=== PATIENT | female | born 1970 | race Asian ===

== ENCOUNTER 2023-01-10 16:55 | Emergency (ER) | payer OTHER ==
[2023-01-10 17:02] VITALS: BP 130/78; PULSE 88; RESP 19; TEMP 97.3; BMI 22.8
== END 2023-01-10 17:52 | disposition left against medical advice (07) ==
LOC: JER 16:55
DX: R07.9 Chest pain, unspecified (principal); Z98.818 Other dental procedure status
CPT/HCPCS: 99281-25

== ENCOUNTER 2023-04-11 17:47 | Emergency (ER) | payer OTHER ==
[2023-04-11 17:53] VITALS: RESP 20; BMI 22.8
[2023-04-11] MEDS ORDERED: ACETAMINOPHEN 500 MG TABLET (FP) PO ONE (18:36)
[2023-04-11] MEDS ORDERED: ACETAMINOPHEN 500 MG TABLET (FP) ONE (18:44)
[2023-04-11] MEDS ORDERED: SODIUM CHLORIDE 0.9% 500 ML INFUS.BAG IV ONE ×2 (18:56→20:02)
[2023-04-11 19:20] LABS: BASO % 0.8 % (0-2.0); EOS % 0.4 % (0-4.5); HEMOGLOBIN 13.8 GM/dL (10.7-15.3); LYMPH % 5.5 % (8-40); MCH 30.1 pg (25.7-33.7); MCHC 32.8 g/dl (32.0-36.0); MEAN CELL VOLUME 91.9 fl (80-96); MEAN PLT VOLUME 7.5 fl (7.5-11.1); MONO % 5.8 % (3.8-10.2); NEUT % 87.5 % (42.8-82.8); PLATELET COUNT 283 10^3/uL (134-434); RBC 4.57 M/mm3 (3.60-5.2); RDW 13.8 % (11.6-15.6); WHITE BLOOD COUNT 9.1 K/mm3 (4.0-10.0)
[2023-04-11 19:37] LABS: POTASSIUM 3.8 mmol/L (3.5-5.1)
[2023-04-11 19:40] LABS: BLOOD UREA NITROGEN 8.7 mg/dL (7-18); CALCIUM 9.4 mg/dL (8.5-10.1); MAGNESIUM 2.1 mg/dL (1.8-2.4)
[2023-04-11 19:41] LABS: ALBUMIN 4.3 g/dl (3.4-5.0)
[2023-04-11 19:43] LABS: CREATININE 0.5 mg/dL (0.55-1.3)
[2023-04-11 19:44] LABS: THROAT:GRP A STREP NOT DETECTED (NOTDETECTED)
[2023-04-11 19:45] LABS: BILIRUBIN,TOTAL 0.6 mg/dL (0.2-1); TOT PROT 7.5 g/dl (6.4-8.2)
[2023-04-11] MEDS ORDERED: KETOROLAC TROMETHAMINE 30 MG/1 ML VIAL IVPUSH ONE (20:02)
[2023-04-11] MEDS ORDERED: KETOROLAC TROMETHAMINE 30 MG/1 ML VIAL ONE (20:04)
[2023-04-11 20:06] VITALS: BP 145/81; PULSE 124; TEMP 101
== END 2023-04-11 21:11 | disposition home or self-care (01) ==
LOC: JERFT 17:47
PROC: 3E0333Z Introduction of Anti-inflammatory into Peripheral Vein, Percutaneous Approach (ICD-10-PCS; principal; 2023-04-11)
DX: R50.9 Fever, unspecified (principal); R07.0 Pain in throat; U07.1 COVID-19
CPT/HCPCS: 0241U-QW; 36415; 80053; 82550; 83735; 84484; 85025; 87651; 93005; 93010; 99284-25

== ENCOUNTER 2023-04-15 21:26 | Emergency (ER) | payer OTHER ==
[2023-04-15 21:50] VITALS: BP 129/75; PULSE 78; RESP 18; TEMP 98; BMI 23.6
== END 2023-04-15 22:28 | disposition home or self-care (01) ==
LOC: JER 21:26 → JERFT 21:26
DX: U07.1 COVID-19 (principal); J00 Acute nasopharyngitis [common cold]
CPT/HCPCS: 99283-25

== ENCOUNTER 2023-07-18 11:42 | Day surgery (SDC) | payer OTHER ==
[2023-07-17 17:25] VITALS: BMI 23.6
[2023-07-18 14:00] VITALS: RESP 18; TEMP 97
[2023-07-18 14:02] VITALS: BP 100/76; PULSE 67
== END 2023-07-18 14:55 | disposition home or self-care (01) ==
LOC: FASU-ENDO 11:42
PROVIDERS: ATTEND Internal Medicine Gastroenterology
PROC: 0DJD8ZZ Inspection of Lower Intestinal Tract, Via Natural or Artificial Opening Endoscopic (ICD-10-PCS; principal; 2023-07-18 13:20)
DX: Z12.11 Encounter for screening for malignant neoplasm of colon (principal); K64.1 Second degree hemorrhoids